=== PATIENT | male | born 1975 | race Caucasian/White ===

== ENCOUNTER 2016-11-21 08:21 | Emergency (ER) | payer BC ==
[~2016-11-21] VITALS: Ht 175.3 cm; Wt 82.0 kg
[2016-11-21] MEDS ORDERED: NO HOME MEDICATION XX (10:13)
[2016-11-21] MEDS ORDERED: CYCLOBENZAPRINE5 M1 PO (15:52)
[2016-11-21] MEDS ORDERED: NORCO 5-325 TA1 EACH PO (15:52)
[2016-11-21] MEDS ORDERED: NAPROSYN500 M1 PO (15:52)
== END 2016-11-21 16:44 ==
LOC: EDMED 08:21
DX: M54.16 Radiculopathy, lumbar region (principal); Z88.5 Allergy status to narcotic agent
CPT/HCPCS: J1170